=== PATIENT | female | born 1990 | race Caucasian/White ===

== ENCOUNTER 2017-05-06 21:05 | Emergency (ER) | payer BC ==
[2017-05-06 22:56] VITALS: BP 117/91
== END 2017-05-06 22:56 | disposition home or self-care (01) ==
LOC: ED 21:05
DX: J98.01 Acute bronchospasm (principal)
CPT/HCPCS: J7512; J7613; J7644; Q0092

== ENCOUNTER 2018-03-15 19:49 | Emergency (ER) | payer BC ==
[~2018-03-15] VITALS: Ht 160 cm; Wt 86.6 kg
[2018-03-15 20:11] VITALS: Ht 160 cm; Wt 86.6 kg
[2018-03-15 20:55] LABS: BASOPHIL % 0.5 % (0-2); PLATELET COUNT 190 x10^3mcL (130-400); RED CELL DISTRIBUTION WIDTH 14.5 % (11.5-14.5)
[2018-03-15 20:57] LABS: CALCIUM 8.6 mg/dL (8.5-10.1); CARBON DIOXIDE 24.8 mmol/L (21-32); CHLORIDE SERUM 102 mmol/L (98-107); CREATININE SERUM 0.5 mg/dL (0.6-1.0); GFR1 > 60 mL/min; GLUCOSE SERUM 77 mg/dL (74-106); POTASSIUM SERUM 3.2 mmol/L (3.5-5.1); SODIUM SERUM 137 mmol/L (136-145)
[2018-03-15 21:02] LABS: ALKALINE PHOSPHATASE 44 U/L (46-116); ALT/SGPT 19 U/L (14-59); AST/SGOT 12 U/L (15-37); BILIRUBIN TOTAL 0.17 mg/dL (0.20-1.00); PHOSPHOROUS 3.7 mg/dL (2.5-4.9); TOTAL PROTEIN, SERUM 6.5 g/dL (6.4-8.2); URIC ACID 3.3 mg/dL (2.6-6.0)
[2018-03-15 21:09] LABS: ALBUMIN 2.8 g/dL (3.4-5.0); CHOLESTEROL 214 mg/dL (<200); HDL CHOLESTEROL 87 mg/dL (40-60)
[2018-03-15 22:46] VITALS: BP 116/86
== END 2018-03-15 22:46 | disposition home or self-care (01) ==
LOC: ED 19:49
PROVIDERS: Emergency Medicine
DX: O26.891 Other specified pregnancy related conditions, first trimester (principal); Z3A.14 14 weeks gestation of pregnancy; R42 Dizziness and giddiness
CPT/HCPCS: 36415; 83880

== ENCOUNTER 2019-10-04 15:03 | Emergency (ER) | payer BC ==
[~2019-10-04] VITALS: Ht 157.5 cm; Wt 99.8 kg
[2019-10-04 15:24] VITALS: Ht 157.5 cm; Wt 99.8 kg
[2019-10-04 17:26] VITALS: BP 131/71
== END 2019-10-04 17:26 | disposition home or self-care (01) ==
LOC: ED 15:03
DX: S83.8X2A Sprain of other specified parts of left knee, initial encounter (principal); X50.1XXA Overexertion from prolonged static or awkward postures, initial encounter; Y93.44 Activity, trampolining; Y92.89 Other specified places as the place of occurrence of the external cause; Y99.8 Other external cause status